=== PATIENT | female | born 1960 | race Caucasian/White ===

== ENCOUNTER 2023-05-14 11:28 | Outpatient (RCR) | payer OTHER, SELFPAY | END 2023-05-14 23:59 | disposition home or self-care (01) | LOC: RPT 11:28 | PROVIDERS: ATTENDING PHYSICIAN Family Medicine | DX: M70.62 Trochanteric bursitis, left hip (principal); Z73.6 Limitation of activities due to disability; R26.2 Difficulty in walking, not elsewhere classified | CPT/HCPCS: 97110; 97162; 97535 ==

== ENCOUNTER 2023-05-23 07:23 | Outpatient (RCR) | payer OTHER, SELFPAY | END 2023-05-23 23:59 | disposition home or self-care (01) | LOC: RPT 07:23 | PROVIDERS: ATTENDING PHYSICIAN Family Medicine | DX: M70.62 Trochanteric bursitis, left hip (principal); Z73.6 Limitation of activities due to disability; R26.89 Other abnormalities of gait and mobility | CPT/HCPCS: 97110 ==

== ENCOUNTER → 2023-06-25 06:22 | Outpatient (REF) | payer OTHER, SELFPAY | LOC: HWWDC 06:22 | PROVIDERS: ATTENDING PHYSICIAN Obstetrics & Gynecology Gynecology; FAMILY PHYSICIAN Family Medicine | DX: Z12.31 Encounter for screening mammogram for malignant neoplasm of breast (principal) | CPT/HCPCS: 77063; 77067 ==

== ENCOUNTER → 2023-09-05 17:42 | Outpatient (REF) | payer OTHER, SELFPAY | LOC: PAVMRI 17:42 | PROVIDERS: ATTENDING PHYSICIAN Specialist | DX: M25.552 Pain in left hip (principal) | CPT/HCPCS: 72148; 73721 ==

== ENCOUNTER 2024-05-23 07:35 | Emergency (ER) | payer OTHER, SELFPAY ==
[2024-05-23 07:42] VITALS: BP 122/81
--- NOTE | 2024-05-23 09:05 | ED.GENMED ---
History of Present Illness
General
Chief Complaint: Skin Problem
Source: patient and spouse
Exam Limitations: none
Time Seen by Provider: 05/23/24 08:50
Nursing documentation reviewed up to this point in time: agreed with
History of Present Illness
History of Present Illness:
63-year-old female with history as noted presents to the ER for evaluation of stye which is not improving. Patient reports that she has had styes many times in the past usually they improved with warm compresses. She says that for the past 10 days
she has had a stye on the left eyelid and that over the past few days eyelid itself is becoming more red and sore and it has not improved with warm compresses and so she came to the ER for assessment. Denies any pain in the eye or vision loss. She
denies any headache. She denies any other complaints. No trauma to the eye.
Past History
Past History
ED Past Medical History: None
ED Past Surgical History:
Social History
Tobacco: Non-smoker
Alcohol: Occasional
Drug: None
Personal:
Living: with family
Employment: Employed
Family History
Family History: Negative Diabetes, Hypertension or CAD
Review of Systems
Review of Systems
All Other Systems: ROS reviewed and negative except as documented in HPI and ROS
EENT: Reports other (Redness, pain, swelling of the left eyelid)
Phy Exam
Physical Exam
Physical Exam:
General: Well appearing and non-toxic
HEENT: protecting airway; TMs clear; patient has hordeolum left upper eyelid with erythema and edema of the entire eyelid; her conjunctiva are normal, pupils are equal round and reactive to light bilaterally, extraocular wounds are intact without
pain
Neck: appears supple
CV: No evidence of cyanosis
Resp: No accessory muscle use
Abd: Non-distended
Extremities: No deformities
Neuro: Alert
Psych: Normal affect
Skin: Intact
Scores
Heart Failure Risk
Heart Failure Risk Score: Not Applicable
Heart Score for Chest Pain Patients
STEMI patient?: Not applicable
Withdrawal Assessment of Alcohol
Withdrawal Assessment Completed?: Not applicable
Course
Vital Signs
Initial and Last Documented VS:
Initial Vital Signs
Temp Pulse Resp BP Pulse Ox
36.5 C 82 16 122/81 100
05/23/24 07:42 05/23/24 07:42 05/23/24 07:42 05/23/24 07:42 05/23/24 07:42
Last Documented Vital Signs
Temp Pulse Resp BP Pulse Ox
36.5 C 82 16 122/81 100
05/23/24 07:42 05/23/24 07:42 05/23/24 07:42 05/23/24 07:42 05/23/24 07:42
MDM/Problems Addressed
Differential Diagnosis Includes:
Hordeolum, dacryoadenitis, preseptal cellulitis
MDM/Problems Addressed:
63-year-old female presents with left eyelid redness, pain, swelling�started as a stye but has not improved with warm compresses and redness and soreness extending to the entire eyelid now. The eye itself is not painful, appears normal on exam.
Notably extraocular wounds are intact without pain. Suspect hordeolum with early preseptal cellulitis. Advised to continue diligently with warm compresses and will add cefdinir for antibiotic coverage. Follow-up as outpatient with PCP. All
questions answered.
*Pulse Oximetry
Patient hypoxic: no
*Critical Care Note
Total Time (30-74mins, 75-104mins- exclusive of procedures): Not Applicable
Data Reviewed
Further Testing Considered But Not Given:
Considered CT of the orbit but with no eye pain, extraocular movements intact without pain very low clinical suspicion for orbital cellulitis and in my judgment no indication for emergent CT
ED Attending Note
-
Portions of this chart may have been created with voice recognition software.� Occasional wrong word or��sound alike� substitutions may have occurred due to the inherent limitations of voice recognition software.
Discharge Plan
Departure
Patient Disposition: Home (Routine Discharge)
Date of Disposition: 05/23/24
Time of Disposition: 09:00
Patient with high blood pressure during this ER visit?: No
Discharge Problem:
Hordeolum, Preseptal cellulitis
Instructions: Stye, Preseptal Cellulitis ED
Prescriptions:
New
cefdinir 300 mg capsule
300 mg PO BID Qty: 14 0RF
No Action
cholecalciferol (vitamin D3) [Vitamin D3] 25 mcg (1,000 unit) Capsule
25 mcg PO DAILY
Wejovy
0.5 mg SC DAILY
multivitamin
1 tab PO DAILY
acetaminophen 325 mg Tablet
650 mg PO Q4HPRN PRN (Reason: mild pain) Qty: 60 0RF
docusate sodium 100 mg Capsule
100 mg PO BID Qty: 60 0RF
oxycodone 5 mg Tablet
2.5 mg PO Q4HPRN PRN (Reason: moderate pain) Qty: 10 0RF
ibuprofen [IBU] 600 mg tablet
600 mg PO Q6H PRN (Reason: pain) Qty: 60 0RF
Referrals:
John Valentin Jr., [Family Provider] - Follow up in 5-7 days
Activity Restrictions/Additional Instructions:
Thank you for visiting the Emergency Department at [facility] [place].
1. Please schedule a follow up appointment as directed. Call first thing tomorrow morning to make an appointment.
2. If indicated, please take your medications as instructed and indicated on discharge paperwork.
3. If any of your symptoms do not improve, or persist, or become more severe within 6-12 hours, please return to the emergency department for further care.
4. Please return to the emergency department if you develop a headache, neck pain/stiffness, fever greater than 100.4F, chest pain, shortness of breath, persistent nausea, vomiting, slurred speech, difficulty walking, numbness/tingling, weakness,
signs of infection or any other symptoms that are worrisome to you.
Please call [phone] if you have any questions.
Interventions
Interventions:
*Risk Screen - Suicide Last Done: 05/23/24 07:42
*General Assessment Last Done: 05/23/24 07:42
*ED COVID-19 Vaccine History Last Done: 05/23/24 07:42
Discharge Date and Time
Print Language: KYRGYZ
== END 2024-05-23 09:15 | disposition home or self-care (01) ==
LOC: EMR 07:35
PROVIDERS: EMERGENCY PHYSICIAN Emergency Medicine; FAMILY PHYSICIAN Family Medicine
DX: H00.014 Hordeolum externum left upper eyelid (principal); L03.213 Periorbital cellulitis; K57.92 Diverticulitis of intestine, part unspecified, without perforation or abscess without bleeding; K58.9 Irritable bowel syndrome, unspecified; Z88.8 Allergy status to other drugs, medicaments and biological substances
CPT/HCPCS: 99283

== ENCOUNTER → 2024-07-13 06:42 | Outpatient (REF) | payer OTHER, SELFPAY | LOC: HWWDC 06:42 | PROVIDERS: ATTENDING PHYSICIAN Obstetrics & Gynecology Gynecology; FAMILY PHYSICIAN Family Medicine | DX: Z12.31 Encounter for screening mammogram for malignant neoplasm of breast (principal) | CPT/HCPCS: 77063; 77067 ==

== ENCOUNTER → 2024-11-27 08:30 | Outpatient (REF) | payer OTHER, SELFPAY | LOC: RCS 08:30 | PROVIDERS: ATTENDING PHYSICIAN Family Medicine | DX: Z86.73 Personal history of transient ischemic attack (TIA), and cerebral infarction without residual deficits (principal) | CPT/HCPCS: 93225; 93226 ==

== ENCOUNTER 2025-01-20 12:10 | Day surgery (SDC) | payer OTHER, SELFPAY ==
[2025-01-20 13:14] VITALS: BMI 34.5
--- NOTE | 2025-01-20 14:00 | ITS.CL.IMPLP ---
Lasting Room Supervisor - Implant Loop
Implant Loop
Procedure Report:
Date of Procedure: January 20, 2025
Primary Care Provider: Dr Arthur Valentin
Primary compliance representative dealer: Dr Balta Gill
Procedure: Insertable Loop Recorder Implantation
Indication:
Cryptogenic CVA
Procedure:
The patient was brought to the procedure area in a fasting state. The anterior chest was prepped and draped in standard sterile fashion. The fourth intercostal space along the left sternal border was identified and this area was anesthetized with 10
mL of 1% lidocaine. After gathering the skin in this area, a small punch incision was made at approx intercostal space 4-5 at left costo-sternal junction using the provided scalpel/punch tool. The loop recorder was loaded into the tunneling device.
A tunnel was created in the subcutaneous tissue at a 45� angle along the coronal plane away from the sternum and towards the left flank. The tunneling device was inverted and the plunger was depressed, inserting the loop recorder into the
subcutaneous space. The tunneling device was removed. Manual pressure provide hemostasis. Adequate signal was confirmed. The skin was closed with steri-strips. The estimated blood loss was < 1 cc. A clean dressing was placed over the wound.
There were no complications.
Implant:
[employer] Reveal LINQ
Conclusion: Uncomplicated implantation of loop recorder.
Recommendation: Routine ILR care.
Copy:
Primary Care Provider: Dr Arthur Valentin
Primary compliance representative dealer: Dr Balta Gill
== END 2025-01-20 14:45 | disposition home or self-care (01) ==
LOC: CATH 12:10
PROVIDERS: ATTENDING PHYSICIAN Internal Medicine Cardiovascular Disease; FAMILY PHYSICIAN Family Medicine; OTHER PHYSICIAN Internal Medicine Interventional Cardiology
DX: Z09 Encounter for follow-up examination after completed treatment for conditions other than malignant neoplasm (principal); Z86.73 Personal history of transient ischemic attack (TIA), and cerebral infarction without residual deficits; E78.2 Mixed hyperlipidemia
CPT/HCPCS: 33285; C1764